=== PATIENT | female | born 2000 | race Caucasian/White ===

== ENCOUNTER 2024-08-03 16:18 | Emergency (ER) | payer SELFPAY | END 2024-08-03 18:46 | disposition home or self-care (01) | LOC: BURERS 16:18 | DX: S00.511A Abrasion of lip, initial encounter (principal); S00.81XA Abrasion of other part of head, initial encounter; S00.31XA Abrasion of nose, initial encounter; F10.129 Alcohol abuse with intoxication, unspecified; W19.XXXA Unspecified fall, initial encounter | CPT/HCPCS: 99284 ==